=== PATIENT | female | born 1985 | race Caucasian/White ===

== ENCOUNTER 2019-10-29 09:50 | Emergency (ER) | payer OTHER, SELFPAY ==
[2019-10-29] VITALS (8 sets, daily range): BP systolic 126–149; BP diastolic 55–95; PULSE 79–102; RESP 15–27; TEMP 36.6; O2SAT 95–100
--- NOTE | ~2019-10-29 | CT_ITS ---
EXAMINATION: CTA chest PE protocol DATE: 10/29/2019 13:36 CDT INDICATION: Dyspnea. Shortness of breath. Positive d-dimer. TECHNIQUE: Computed tomographic angiography (CTA) of the chest was performed with 100 mL Omnipaque-35 0 intravenous contrast. The dose-length product was 975.11 mGy-cm. Maximum intensity projection 3D-re constructions of the aorta and other arteries were constructed by the technologist on a separate work station. Automated exposure control and iterative reconstruction technique were employed. COMPARISON: None. FINDINGS: There are filling defects in right upper lobe segmental and subsegmental pulmonary arteries . No thoracic lymphadenopathy. No significant pleural or pericardial effusion. Heart size normal. Sma ll hiatal hernia. Calcified granuloma left upper lobe. No endobronchial lesions. No focal airspace co nsolidation. No pneumothorax. IMPRESSION: 1. Filling defects right upper lobe segmental and subsegmental pulmonary arteries which may be due to pulmonary embolism (small thrombus burden) versus flow/motion artifact. Reviewed, dictated and finalized at location A. IMPRESSION: 1. Filling defects right upper lobe segmental and subsegmental pulmonary arteri es which may be due to pulmonary embolism (small thrombus burden) versus flow/m otion artifact.
--- NOTE | ~2019-10-29 | XR_ITS ---
EXAMINATION: XR chest 2V 10/29/2019 10:18 INDICATION: Shortness of breath and cough. PROCEDURE: 2 view chest COMPARISON: No prior studies for comparison. FINDINGS: The lungs are clear. The cardiomediastinal silhouette is within normal limits. There are no pleural effusions. There is no pneumothorax suspected. IMPRESSION: 1: NO ACUTE CARDIOPULMONARY DISEASE. Reviewed, dictated and finalized at location A.
--- NOTE | 2019-10-29 10:07 | ED.SOB ---
HPI - SOB/Dyspnea General Chief Complaint: Shortness of Breath/Dyspnea Stated Complaint: SOB Time Seen by Provider: 10/29/19 10:07 Source: patient Mode of arrival: ambulatory Limitations: no limitations History of Present Illness HPI Narrative: 34-year-old woman who has been having intermittent dyspnea that she noticed moreso when she was active work become worse today. The symptoms started approximately a month ago. Patient states she has had a very mild intermittent nonproductive cough and some mild intermittent chest discomfort. She denies fever, sputum production, nasal congestion, sore throat, or recent travel. 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 She is a nonsmoker and has no history of lung disease. MD elicited complaint: shortness of breath, cough and chest pain Onset (ago): week(s) Timing: intermittent Severity: moderate Exacerbating factors: exertion and other ( Mask) Relieving factors: rest Associated symptoms: cough Treatment prior to arrival: none Related Data Home oxygen amount: none Allergies Allergy/AdvReac Type Severity Reaction Status Date / Time No Known Allergies Verified 07/13/09 16:55 Review of Systems Constitutional: Constitutional: Denies chills, Reports fatigue, Denies fever(s) and Denies weakness Eyes: Eyes: Denies change in vision and Denies photophobia ENT: Denies dysphagia, Denies nasal congestion and Denies sore throat Cardiovascular: Cardiovascular: Denies chest pain and Denies radiating jaw, neck or arm pain Respiratory: Respiratory: Reports cough, Reports dyspnea and Denies wheezing Gastrointestinal: Gastrointestinal: Denies abdominal pain, Denies diarrhea, Denies nausea and Denies vomiting Genitourinary: Genitourinary: Denies hematuria, Denies nocturia and Denies dysuria Musculoskeletal: Musculoskeletal: Denies back pain, Denies arthralgias, Denies joint swelling and Denies muscle cramps Integumentary/Breasts: Skin/Breast: Denies pruritus, Denies erythema and Denies rash Neurologic: Denies vertigo, Denies dizziness and Denies syncope Psychiatric: Psychiatric: Denies anxiety and Denies depression Endocrine: Endocrine: Denies excessive sweating, Denies polydipsia and Denies polyuria Hematologic/Lymphatic: Hematologic/Lymphatic: Denies easy bleeding and Denies easy bruising Allergic/Immunologic: Allergic/Immunologic: Denies lip swelling and Denies wheezing [facility] Past Medical History Medical History Anxiety Depression OLVIN (obstructive sleep apnea) Surgical History Surgical History H/O myringotomy History of tonsillectomy Social History Social History Smoking status: Never smoker Alcohol intake: never Substance use: never Living arrangements: with family Additional occupation/education comments: RN Exam Const: General: healthy appearing and alert Orientation/consciousness: patient oriented x3 Other: Mild acute distress HENMT: Head: normal to inspection Ears: external ears normal, TM's normal bilaterally and EAC's normal Mouth: Yes Normal oral and palatal mucosa present and Yes moist mucous membranes Throat: posterior oropharynx normal Eyes: Conjunctivae: conjunctivae normal Pupils: Equal, round and reactive pupils present EOM: EOMs intact bilaterally Resp: Effort & Inspection: normal respiratory effort and not labored Auscultation: clear to auscultation bilaterally, no rales, no rhonchi and no wheezes Cardio: Rate: regular rate Rhythm: regular rhythm Heart sounds: no murmurs Skin: General skin exam: normal color, no jaundice and no pallor Rashes: no rashes Neuro: General: patient oriented x3, moves all extremities, no focal motor deficits and CN's II-XI intact bilaterally Speech: normal speech Extrem: Genera
--- NOTE | 2019-10-29 10:25 | ECG_ITS ---
Measurements Intervals [place] Rate: 87 P: 68 LA: 172 QRS: 12 QRSD: 76 T: -2 QT: 348 QTc: 421 Interpretive Statements SINUS RHYTHM WITH SINUS ARRHYTHMIA EARLY PRECORDIAL R/S TRANSITION BASELINE ARTIFACT- II, III, AVF BORDERLINE ECG Electronically Signed On 10-29-2019 10:42:42 CDT by Darell Mathias D.O.
[2019-10-29 10:41] LABS: Influenza Control Valid (Valid)
[2019-10-29 11:03] LABS: Basophils Absolute Auto 0.04 K/mm3 (0.00-0.10); Basophils Percent Auto 0.5 % (0.0-1.0); Eosinophils Absolute Auto 0.13 K/mm3 (0.02-0.50); Eosinophils Percent Auto 1.5 % (1.0-6.0); Hemoglobin 12.3 g/dL (12.0-15.0); Immature Granulocyte Absolute 0.02 K/mm3 (0.00-0.00); Immature Granulocyte Percent A 0.2 % (0.0-0.0); Lymphocytes Percent Auto 33.4 % (18.0-42.0); Mean Corpuscular HGB Conc 31.5 g/dL (32.0-36.0); Mean Corpuscular Hemoglobin 25.9 pg (27.0-31.0); Mean Corpuscular Volume 82.1 fL (78.0-102.0); Mean Platelet Volume 9.9 fl (9.2-11.8); Monocytes Percent Auto 5.8 % (2.0-11.0); Neutrophils Absolute Auto 5.1 K/mm3 (1.7-7.2); Neutrophils Percent Auto 58.6 % (50.0-70.0); Platelet Count Result 275 K/mm3 (150-420); Red Blood Count 4.75 M/mm3 (4.20-5.40); Red Cell Distribution Width 14.3 % (11.6-14.4); White Blood Count 8.7 K/mm3 (4.8-10.8)
[2019-10-29 11:17] LABS: Partial Thromboplastin Time 27.2 SEC (22.3-31.6); Prothrombin Time 10.5 Seconds (9.64-11.0)
[2019-10-29 11:18] LABS: Alanine Aminotransferase 17 U/L (14-59); Albumin Level 3.4 g/dL (3.4-5.0); Alkaline Phosphatase 71 U/L (46-116); Anion Gap 14.2 mmol/L (7-16); Aspartate Amino Transferase 10 U/L (15-37); Bilirubin,Total 0.5 mg/dL (0.00-1.00); Blood Urea Nitrogen 16 mg/dL (7-18); Calcium 8.7 mg/dL (8.5-10.1); Carbon Dioxide 27 mmol/L (21-32); Chloride 105 mmol/L (98-108); Estimated CRCL calculation 115 ml/min; Estimated Glomerular Filt Rate > 60; Glucose 81 mg/dL (70-99); Osmolality Calculated 296 mOsm/kg (285-295); Potassium 3.2 mmol/L (3.5-5.1); Sodium 143 mmol/L (136-145); Total Protein 7.3 g/dL (6.4-8.2)
[2019-10-29 11:19] LABS: D Dimer 0.57 mg/L (0.19-0.50)
[2019-10-29 11:19] LABS: Troponin I < 0.02 ng/mL (0.00-0.056)
[2019-10-29 11:21] LABS: BNP 7 pg/mL (0-100)
[2019-10-29] MEDS: ALBUTEROL SULFATE (*SP) INHALER 4 PUFF INHALATION (11:56)
[2019-10-29 12:28] LABS: Add Urine Microscopic? YES; Appearance Urine Sl Cloudy (Clear); Bilirubin Urine Negative (Negative); Blood Urine 2+ (Negative); Color Urine Yellow (Yellow); Glucose Urine UA Negative (Negative); Ketones Urine Negative (Negative); Leukocyte Esterase Ur 1+ LEU/UL (Negative); Nitrate Urine Negative (Negative); Protein Urine Negative (Negative); Specific Grav Ur 1.025 (1.010-1.020); Urobilinogen Urine 0.2 mg/dL (0.2-1.0); pH Urine 6.5 (5.0-8.0)
[2019-10-29 12:34] LABS: Bacteria Urine 1+ /hpf; Squamous Epithelial Cell Urine Moderate /hpf (Few)
[2019-10-29 13:55] LABS: Pregnancy On Board Control Positive; Specific Gravity Ur 1.025 (1.010-1.035); Urine Pregnancy Test Negative
[2019-10-29 14:37] LABS: CRP 1.9 mg/dL (0.0-0.9)
[2019-10-29] MEDS: APIXABAN 2.5 MG TABLET 10 MG PO (15:00)
[2019-10-29 15:29] LABS: Erythrocyte Sedimentation Rate 20 mm/hr (0-15)
[2019-10-31 18:12] LABS: Homocysteine 8.7 umol/L (<10.4)
[2019-10-31 21:19] LABS: Antithrombin III Activity 108 % activity (80-120)
[2019-11-01 03:21] LABS: Lupus dRVVT 1:1 Mix Interpreta Not Indicated; Lupus dRVVT Screen 36 sec (<=45); PTT-LA Screen 35 sec (<=40)
[2019-11-01 06:12] LABS: Anti Cardio Antibody IgM <12 MPL (<=12); Anti Cardiolipin Antibody IgA <11 APL (<=11); Anti Cardiolipin Antibody IgG <14 GPL (<=14)
[2019-11-01 19:30] LABS: SARS-CoV-2 RNA PCR Negative
[2019-11-02 10:31] LABS: Protein C Antigen 91 % (70-140)
[2019-11-03 14:09] LABS: Factor VIII Activity 105 % normal (50-180)
== END 2019-10-29 15:10 | disposition home or self-care (01) ==
PROVIDERS: Emergency Provider Emergency Medicine
DX: I26.94 Multiple subsegmental thrombotic pulmonary emboli without acute cor pulmonale (principal); Z20.828 Contact with and (suspected) exposure to other viral communicable diseases
CPT/HCPCS: 36415; 71046; 71275; 80053; 81001; 81025; 81240; 81241; 81291; 83090; 83880; 84484; 85025; 85240; 85250; 85260; 85300; 85302; 85303; 85306; 85380; 85610; 85613; 85652; 85730; 86038; 86140; 86147; 87040; 87077; 87086; 87088; 87299; 87635; 87804; 93005; 99284; A9270; Q9965; U0003

== ENCOUNTER 2019-10-31 10:22 | Outpatient (CLI) | payer OTHER, SELFPAY ==
--- NOTE | ~2019-10-31 | US_ITS ---
EXAMINATION:US venous doppler LE BI INDICATION:Swelling. Pulmonary embolism. TECHNIQUE: Multiple grayscale, color flow and Doppler images of the lower extremity deep venous syste ms were obtained and reviewed. COMPARISON:No prior studies for comparison. FINDINGS: The common femoral, superficial femoral and popliteal veins demonstrate normal respiratory variation, augmentation and compressibility. Color flow is also seen within the posterior tibial, pe roneal, greater saphenous and profunda veins. IMPRESSION: 1: No lower extremity deep venous thrombosis. Reviewed, dictated and finalized at location A.
== END 2019-10-31 10:23 | disposition home or self-care (01) ==
LOC: CHSIMG 10:26
PROVIDERS: PCP Internal Medicine; Visit Provider Internal Medicine
DX: I26.99 Other pulmonary embolism without acute cor pulmonale (principal); R60.0 Localized edema
CPT/HCPCS: 93970

== ENCOUNTER 2020-12-16 14:45 | Outpatient (CLI) | payer OTHER, SELFPAY ==
--- NOTE | ~2020-12-16 | XR_ITS ---
XR foot LT min 3V DATE: 12/16/2020 15:07 INDICATION: Left foot pain at plantar arch area TECHNIQUE: 4 views COMPARISON: None FINDINGS: Mild plantar calcaneal enthesopathy. No fracture or dislocation, periosteal reaction or bone destruction. IMPRESSION: Mild plantar calcaneal enthesopathy Reviewed, dictated and finalized at location A.
== END 2020-12-16 14:46 | disposition home or self-care (01) ==
LOC: CHSIMG 14:48
PROVIDERS: PCP Internal Medicine; Visit Provider Nurse Practitioner Family
DX: M79.672 Pain in left foot (principal)
CPT/HCPCS: 73630